=== PATIENT | male | born 1990 | race Caucasian/White ===

== ENCOUNTER 2019-03-04 07:43 | Emergency (ER) | payer BC ==
--- NOTE | 2019-03-04 08:16 | ED ---
Psych HPI - General Chief Complaint: Psychiatric Symptoms Stated Complaint: Would like to be committed Time Seen by Provider: 03/04/19 07:57 Source: patient, RN notes reviewed Mode of arrival: ambulatory Limitations: no limitations - History of Present Illness Initial Comments: 28-year-old male presents emergency Department chief complaint of suicidal i deation. Patient states that he's had on going thoughts for several years but states it's worse today. Patient has no exact plan. Patient states she has a large amount of stress factors that's bothering him. Patient uses see a psychiatrist no current medications he did drink alcohol last night states he does not abuse and no drug abuse. Denies any physical complaints including chest pain, shortness breath, headache, dizziness, nausea, vomiting, diarrhea constipation. - Related Data Home Medications Medication Instructions Recorded Confirmed Acetaminophen/Caffeine [Excedrin 1 tab PO Q8H 03/04/19 03/04/19 Tension Headache Cplt] Allergies Allergy/AdvReac Type Severity Reaction Status Date / Time Penicillins AdvReac Rapid Verified 03/04/19 07:57 Heart Rate Review of Systems ROS Statement: Those systems with pertinent positive or pertinent negative responses have been documented in the HPI. ROS Other: All systems not noted in ROS Statement are negative. Past Medical History Past Medical History: No Reported History History of Any Multi-Drug Resistant Organisms: None Reported Additional Past Surgical History / Comment(s): kidney removal, 2 undecended testicles repaired Past Psychological History: No Psychological Hx Reported Smoking Status: Never smoker Past Alcohol Use History: Rare Past Drug Use History: None Reported General Exam Limitations: no limitations General appearance: alert, in no apparent distress Head exam: Present: atraumatic, normocephalic, normal inspection Eye exam: Present: normal appearance, PERRL, EOMI. Absent: scleral icterus, conjunctival injection, periorbital swelling ENT exam: Present: normal exam, normal oropharynx, mucous membranes moist Neck exam: Present: normal inspection, full ROM. Absent: tenderness, meningismus, lymphadenopathy Respiratory exam: Present: normal lung sounds bilaterally. Absent: respiratory distress, wheezes, rales, rhonchi, stridor Cardiovascular Exam: Present: regular rate, normal rhythm, normal heart sounds. Absent: systolic murmur, diastolic murmur, rubs, gallop, clicks GI/Abdominal exam: Present: soft, normal bowel sounds. Absent: distended, tenderness, guarding, rebound, rigid Neurological exam: Present: alert, oriented X3, CN II-XII intact Psychiatric exam: Present: depressed Skin exam: Present: warm, dry, intact, normal color. Absent: rash Course Vital Signs 03/04/19 07:54 Temperature 98.7 F Pulse Rate 92 Respiratory 18 Rate Blood Pressure 150/93 O2 Sat by Pulse 96 Oximetry Medical Decision Making - Medical Decision Making 28-year-old male presented for depression, suicidal ideation. He was evaluated by EPS case discussed with psychiatrist who recommends inpatient treatment. Patient will be transferred to psychiatric facility secondary to insurance reasons - Lab Data Result diagrams: 03/04/19 10:50 03/04/19 10:50 Lab Results 03/04/19 03/04/19 03/04/19 Range/Units 08:00 08:00 10:50 WBC 7.7 (3.8-10.6) k/uL RBC 5.46 (4.30-5.90) m/uL Hgb 16.5 (13.0-17.5) gm/dL Hct 47.0 (39.0-53.0) % MCV 86.0 (80.0-100.0) fL MCH 30.1 (25.0-35.0) pg MCHC 35.0 (31.0-37.0) g/dL RDW 14.5 (11.5-15.5) % Plt Count 148 L (150-450) k/uL Neutrophils % 64 % Lymphocytes % 23 % Monocytes % 8 % Eosinophils % 1 % Basophils % 0 % Neutrophils # 5.0 (1.3-7.7) k/uL Lymphocytes # 1.8 (1.0-4.8) k/uL Monocytes # 0.6 (0-1.0) k/uL Eosinophils # 0.1 (0-0.7) k/uL Basophils # 0.0 (0-0.2) k/uL Sodium (137-145) mmol/L Potassium (3.5-5.1) mmol/L Chloride (98-107) mmol/L Carbon Dioxide (22-30) mmol/L Anion Gap mmol/L BUN (9-20) mg/dL Creatinine (0.66-1.25) mg/dL Est GFR (CKD-EPI)AfAm (>60 ml/min/1.73 sqM) Est GFR (CKD-EPI)NonAf (>60 ml/min/1.73 sqM) Glucose (74-99) mg/dL Calcium (8.4-10.2) mg/dL Total Bilirubin (0.2-1.3) mg/dL AST (17-59) U/L ALT (21-72) U/L Alkaline Phosphatase (38-126) U/L Total Protein (6.3-8.2) g/dL Albumin (3.5-5.0) g/dL Urine Color Light Yellow Urine Appearance Clear (Clear) Urine pH 7.0 (5.0-8.0) Ur Specific [place] 1.017 (1.001-1.035) Urine Protein 1+ H (Negative) Urine Glucose (UA) Negative (Negative) Urine Ketones 2+ H (Negative) Urine Blood Negative (Negative) Urine Nitrite Negative (Negative) Urine Bilirubin Negative (Negative) Urine Urobilinogen <2.0 (<2.0) mg/dL Ur Leukocyte Esterase Negative (Negative) Urine WBC 1 (0-5) /hpf Urine Mucus Rare H (None) /hpf Urine Opiates Screen Not Detected (NotDetected) Ur Oxycodone Screen Not Detected (NotDetected) Urine Methadone Screen Not Detected (NotDetected) Ur Propoxyphene Screen Not Detected (NotDetected) Ur Barbiturates Screen Not Detected (NotDetected) U Tricyclic Antidepress Not Detected (NotDetected) Ur Phencyclidine Scrn Not Detected (NotDetected) Ur Amphetamines Screen Not Detected (NotDetected) U Methamphetamines Scrn Not Detected (NotDetected) U Benzodiazepines Scrn Not Detected (NotDetected) Urine Cocaine Screen Not Detected (NotDetected) U Marijuana (THC) Screen Not Detected (NotDetected) 03/04/19 Range/Units 10:50 WBC (3.8-10.6) k/uL RBC (4.30-5.90) m/uL Hgb (13.0-17.5) gm/dL Hct (39.0-53.0) % MCV (80.0-100.0) fL MCH (25.0-35.0) pg MCHC (31.0-37.0) g/dL RDW (11.5-15.5) % Plt Count (150-450) k/uL Neutrophils % % Lymphocytes % % Monocytes % % Eosinophils % % Basophils % % Neutrophils # (1.3-7.7) k/uL Lymphocytes # (1.0-4.8) k/uL Monocytes # (0-1.0) k/uL Eosinophils # (0-0.7) k/uL Basophils # (0-0.2) k/uL Sodium 141 (137-145) mmol/L Potassium 3.6 (3.5-5.1) mmol/L Chloride 101 (98-107) mmol/L Carbon Dioxide 27 (22-30) mmol/L Anion Gap 13 mmol/L BUN 15 (9-20) mg/dL Creatinine 1.30 H (0.66-1.25) mg/dL Est GFR (CKD-EPI)AfAm 86 (>60 ml/min/1.73 sqM) Est GFR (CKD-EPI)NonAf 75 (>60 ml/min/1.73 sqM) Glucose 95 (74-99) mg/dL Calcium 9.8 (8.4-10.2) mg/dL Total Bilirubin 1.3 (0.2-1.3) mg/dL AST 39 (17-59) U/L ALT 46 (21-72) U/L Alkaline Phosphatase 70 (38-126) U/L Total Protein 8.0 (6.3-8.2) g/dL Albumin 4.9 (3.5-5.0) g/dL Urine Color Urine Appearance (Clear) Urine pH (5.0-8.0) Ur Specific [place] (1.001-1.035) Urine Protein (Negative) Urine Glucose (UA) (Negative) Urine Ketones (Negative) Urine Blood (Negative) Urine Nitrite (Negative) Urine Bilirubin (Negative) Urine Urobilinogen (<2.0) mg/dL Ur Leukocyte Esterase (Negative) Urine WBC (0-5) /hpf Urine Mucus (None) /hpf Urine Opiates Screen (NotDetected) Ur Oxycodone Screen (NotDetected) Urine Methadone Screen (NotDetected) Ur Propoxyphene Screen (NotDetected) Ur Barbiturates Screen (NotDetected) U Tricyclic Antidepress (NotDetected) Ur Phencyclidine Scrn (NotDetected) Ur Amphetamines Screen (NotDetected) U Methamphetamines Scrn (NotDetected) U Benzodiazepines Scrn (NotDetected) Urine Cocaine Screen (NotDetected) U Marijuana (THC) Screen (NotDetected) Disposition Clinical Impression: Depression, Suicidal ideation Disposition: TRANSFER TO PSYCH HOSP/UNIT Condition: Stable Referrals: None,Stated [Primary Care Provider] - 1-2 days
[2019-03-04 08:44] LABS: Amphetamine Screen,Urine Not Detected (NotDetected); Barbiturate Screen,Urine Not Detected (NotDetected); Benzodiazepines Screen,Urine Not Detected (NotDetected); Cocaine Screen,Urine Not Detected (NotDetected); Methadone Screen, Urine Not Detected (NotDetected); Opiate Screen,Urine Not Detected (NotDetected); Oxycodone Screen, Urine Not Detected (NotDetected); Phencyclidine Screen,Urine Not Detected (NotDetected); Tricyclic Antidepressant,Urine Not Detected (NotDetected); Urn Cannabinoid Scrn Not Detected (NotDetected)
[2019-03-04] MEDS ORDERED: ACETAMINOPHEN TAB 325 MG TAB PO STA (09:41)
[2019-03-04 10:50] LABS: Appearance,Urine Clear (Clear); Bilirubin,Urine Negative (Negative); Blood,Urine Negative (Negative); Color,Urine Light Yellow; Glucose,Urine (UA) Negative (Negative); Ketones,Urine 2+ (Negative); Leukocyte Esterase,Urine Negative (Negative); Mucus,Urine Rare /hpf; Nitrite,Urine Negative (Negative); Protein,Urine 1+ (Negative); Specific Gravity,Urine 1.017 (1.001-1.035); Urobilinogen,Urine <2.0 mg/dL (<2.0); WBC,Urine 1 /hpf (0-5)
[2019-03-04 11:09] LABS: Basophils % (A) 0 %; Eosinophils # (A) 0.1 k/uL (0-0.7); Eosinophils % (A) 1 %; HGB 16.5 gm/dL (13.0-17.5); Lymphocytes # (A) 1.8 k/uL (1.0-4.8); Lymphocytes % (A) 23 %; MCH 30.1 pg (25.0-35.0); Monocytes # (A) 0.6 k/uL (0-1.0); Monocytes % (A) 8 %; Neutrophils % (A) 64 %; Platelet Count 148 k/uL (150-450); RBC 5.46 m/uL (4.30-5.90); RDW 14.5 % (11.5-15.5); WBC 7.7 k/uL (3.8-10.6)
[2019-03-04 11:16] LABS: Albumin 4.9 g/dL (3.5-5.0); Calcium 9.8 mg/dL (8.4-10.2); Potassium 3.6 mmol/L (3.5-5.1); Total Bilirubin 1.3 mg/dL (0.2-1.3)
[2019-03-04] MEDS ORDERED: ACETAMINOPHEN TAB 500 MG TAB PO STA (19:19)
[2019-03-04 23:56] VITALS: BP 132/87; PULSE 70; RESP 18; TEMP 98.2
== END 2019-03-05 00:08 ==
LOC: EC 07:43
DX: F32.9 Major depressive disorder, single episode, unspecified (principal); R45.851 Suicidal ideations; Z79.899 Other long term (current) drug therapy; Z88.0 Allergy status to penicillin
CPT/HCPCS: 36415; 80053; 80306; 81001; 82075; 85025; 99285

== ENCOUNTER 2019-06-16 00:54 | Emergency (ER) | payer BC, OTHER ==
[2019-06-16 01:13] VITALS: BP 116/71; PULSE 88; RESP 18; TEMP 98.4
--- NOTE | 2019-06-16 01:45 | XR ---
EXAMINATION TYPE: XR finger RT DATE OF EXAM: 06/16/2019 COMPARISON: NONE HISTORY: Third digit infection TECHNIQUE: 3 views FINDINGS: There is some soft tissue swelling around the middle finger. There is posterior soft tissue swelling at the nailbed. I see no fracture nor dislocation. There is no focal bone destruction. IMPRESSION: Soft tissue swelling. No fracture. No sign of osteomyelitis.
--- NOTE | 2019-06-16 01:54 | ED ---
General Adult HPI - General Chief complaint: Extremity Injury, Upper Stated complaint: Finger Injury, I[facility] Time Seen by Provider: 06/16/19 01:08 Source: patient, RN notes reviewed Mode of arrival: ambulatory Limitations: no limitations - History of Present Illness Initial comments: 29-year-old male without any significant past medical history presents to the emergency department for a chief complaint of pain to the right third digit. Patient states 2 or 3 weeks ago he had an injury at work. States that he was seen by his primary care provider at that time. He had negative x-rays. Patient states that his nail is starting to, and he is concerned there is infection. Denies any pain with bending the finger. Patient states he was started on antibiotics yesterday. States he took a dose last night but forgot to take it this morning. States he took another dose just prior to arrival. Denies fevers or chills. Denies any streaking or spreading redness of the hand.Patient has no other complaints at this time including shortness of breath, chest pain, abdominal pain, nausea or vomiting, headache, or visual changes. - Related Data Home Medications Medication Instructions Recorded Confirmed Acetaminophen/Caffeine [Excedrin 1 tab PO Q8H 03/04/19 03/04/19 Tension Headache Cplt] Allergies Allergy/AdvReac Type Severity Reaction Status Date / Time Penicillins AdvReac Rapid Verified 06/16/19 01:13 Heart Rate Review of Systems ROS Statement: Those systems with pertinent positive or pertinent negative responses have been documented in the HPI. ROS Other: All systems not noted in ROS Statement are negative. Past Medical History Past Medical History: No Reported History History of Any Multi-Drug Resistant Organisms: None Reported Additional Past Surgical History / Comment(s): kidney removal, 2 undecended testicles repaired Past Psychological History: No Psychological Hx Reported Smoking Status: Never smoker Past Alcohol Use History: Occasional Past Drug Use History: None Reported General Exam Limitations: no limitations General appearance: alert, in no apparent distress Head exam: Present: atraumatic, normocephalic, normal inspection Eye exam: Present: normal appearance, PERRL, EOMI. Absent: scleral icterus, conjunctival injection, periorbital swelling ENT exam: Present: normal exam Neck exam: Present: normal inspection, full ROM. Absent: tenderness, meningismus, lymphadenopathy Respiratory exam: Present: normal lung sounds bilaterally. Absent: respiratory distress, wheezes, rales, rhonchi, stridor Cardiovascular Exam: Present: regular rate, normal rhythm, normal heart sounds. Absent: systolic murmur, diastolic murmur, rubs, gallop, clicks Extremities exam: Present: full ROM (Full range of motion of the right third digit including the DIP joint.), tenderness (Mild tenderness noted to the proximal nail fold. No tenderness to the finger pad.), normal capillary refill (Capillary refill less than 2 seconds in the right third digit.), other (Mild erythema with mild edema noted to the distal right third digit. This is only in the distal phalanx. However does not appear to be infection at this time. Appears to be more related to injury.) Course Vital Signs 06/16/19 01:08 Temperature 98.4 F Pulse Rate 88 Respiratory 18 Rate Blood Pressure 116/71 O2 Sat by Pulse 99 Oximetry Medical Decision Making - Medical Decision Making 29-year-old male presents to the emergency department for right finger injury 3 weeks ago. Patient injured this while at work. On examination there is some mild erythema with mild edema. There is tenderness to the proximal nail fold. No tenderness to the finger pad. Patient has full range of motion of the right third digit with full flexion of the third DIP joint. I do not see any obvious signs of infection. X-ray was taken which shows soft tissue swelling without fracture. No sign of osteomyelitis. Patient was given antibiotics yesterday and has only had 2 doses. Has not taken us appropriately as he missed a dose. Patient can continue his antibiotic and hit he has any worsening swelling or redness he is aware to return to the emergency department. Disposition Clinical Impression: Finger injury Disposition: HOME SELF-CARE Condition: Good Instructions (If sedation given, give patient instructions): Jammed Finger (ED), Nail Avulsion (ED) Additional Instructions: History of Motrin and Tylenol for pain. Please take antibiotics as directed in about 24-48 hours for this to work. If you have any worsening symptoms such as spreading or streaking redness up the finger, fever, or drainage then return to the emergency department. Is patient prescribed a controlled substance at d/c from ED?: No Referrals: None,Stated [Primary Care Provider] - 1-2 days Valeria Hewitt MD [REFERRING] - 1-2 days Time of Disposition: 01:54
== END 2019-06-16 02:09 | disposition home or self-care (01) ==
LOC: EC 00:54
DX: S69.91XA Unspecified injury of right wrist, hand and finger(s), initial encounter (principal); Z88.0 Allergy status to penicillin; X58.XXXA Exposure to other specified factors, initial encounter; Y92.69 Other specified industrial and construction area as the place of occurrence of the external cause; Y99.0 Civilian activity done for income or pay
CPT/HCPCS: 99283

== ENCOUNTER 2022-04-16 19:46 | Emergency (ER) | payer BC, OTHER ==
[2022-04-16 19:56] VITALS: RESP 16
[2022-04-16] MEDS ORDERED: diphenhydrAMINE 50 MG CAP PO STA (20:06)
[2022-04-16] MEDS ORDERED: SODIUM CHLORIDE 0.9% 1,000 ML IV STA (20:06)
[2022-04-16] MEDS ORDERED: DEXAMETHASONE SOD PHOSPHATE 10 MG/ML 1 ML VIAL IVP STA (20:07)
[2022-04-16 20:08] VITALS: BP 112/72; PULSE 87; TEMP 97.8
[2022-04-16 20:22] LABS: Basophils % (A) 0 %; Eosinophils # (A) 0.1 k/uL (0-0.7); Eosinophils % (A) 1 %; HCT 48.8 % (39.0-53.0); HGB 16.6 gm/dL (13.0-17.5); Lymphocytes # (A) 1.5 k/uL (1.0-4.8); Lymphocytes % (A) 15 %; MCH 30.2 pg (25.0-35.0); MCHC 34.1 g/dL (31.0-37.0); MCV 88.8 fL (80.0-100.0); Mean Platelet Volume 8.9; Monocytes # (A) 0.4 k/uL (0-1.0); Monocytes % (A) 4 %; Neutrophils # (A) 7.9 k/uL (1.3-7.7); Neutrophils % (A) 79 %; Platelet Count 151 k/uL (150-450); RDW 12.3 % (11.5-15.5)
[2022-04-16 20:30] LABS: Calcium 9.5 mg/dL (8.4-10.2); Potassium 4.3 mmol/L (3.5-5.1)
--- NOTE | 2022-04-16 21:23 | XR ---
EXAMINATION TYPE: XR chest 2V DATE OF EXAM: 04/16/2022 COMPARISON: 03/25/2015 HISTORY: Pain TECHNIQUE: FINDINGS: Heart and mediastinum are normal. Lungs are clear. Diaphragm is normal. Bony thorax appears normal. IMPRESSION: Normal chest. No change.
--- NOTE | 2022-04-16 21:50 | ED ---
Allergic Reaction HPI - General Chief complaint: Shortness of Breath Stated complaint: Hives,SOB Time Seen by Provider: 04/16/22 20:02 Source: patient Mode of arrival: EMS Limitations: no limitations - History of Present Illness Initial Comments: Patient complains of an ALLERGIC reaction. He did take Benadryl prior to arrival. He doesn't feel like he is, it better. He feels acute has tongue or lip swelling. He has no chest pain or belly pain or back pain. He has no nausea or vomiting. He is not sure what he might of been exposed to exactly, bu t he does have some ideas that it could be related to a work chemical. - Related Data Home Medications Medication Instructions Recorded Confirmed Acetaminophen/Caffeine [Excedrin 1 tab PO Q8H 03/04/19 03/04/19 Tension Headache Cplt] Previous Rx's Medication Instructions Recorded methylPREDNISolone Dose Pack 4 mg PO DIRECTED #21 tab 04/16/22 [Medrol Dose Pack] Allergies Allergy/AdvReac Type Severity Reaction Status Date / Time Penicillins AdvReac Rapid Verified 04/16/22 19:50 Heart Rate Review of Systems ROS Statement: Those systems with pertinent positive or pertinent negative responses have been documented in the HPI. ROS Other: All systems not noted in ROS Statement are negative. Past Medical History Past Medical History: No Reported History History of Any Multi-Drug Resistant Organisms: None Reported Additional Past Surgical History / Comment(s): kidney removal, 2 undecended testicles repaired Past Psychological History: No Psychological Hx Reported Smoking Status: Former smoker Past Alcohol Use History: Occasional Past Drug Use History: None Reported General Exam Limitations: no limitations General appearance: alert, in no apparent distress Head exam: Present: atraumatic, normocephalic, normal inspection Eye exam: Present: normal appearance, PERRL, EOMI. Absent: scleral icterus, conjunctival injection, periorbital swelling ENT exam: Present: normal exam, mucous membranes moist Neck exam: Present: normal inspection. Absent: tenderness, meningismus, lymphadenopathy Respiratory exam: Present: normal lung sounds bilaterally. Absent: respiratory distress, wheezes, rales, rhonchi, stridor Cardiovascular Exam: Present: regular rate, normal rhythm, normal heart sounds. Absent: systolic murmur, diastolic murmur, rubs, gallop, clicks GI/Abdominal exam: Present: soft, normal bowel sounds. Absent: distended, tenderness, guarding, rebound, rigid Extremities exam: Present: normal inspection, full ROM, normal capillary refill. Absent: tenderness, pedal edema, joint swelling, calf tenderness Back exam: Present: normal inspection Neurological exam: Present: alert, oriented X3, CN II-XII intact Psychiatric exam: Present: normal affect, normal mood Skin exam: Present: warm, dry, intact, normal color. Absent: rash Course Vital Signs 04/16/22 04/16/22 19:51 20:05 Temperature 99.0 F 97.8 F Pulse Rate 106 H 87 Respiratory 16 16 Rate Blood Pressure 75/48 112/72 O2 Sat by Pulse 100 100 Oximetry Medical Decision Making - Medical Decision Making Patient complains of an ALLERGIC reaction. He is given IV Benadryl and steroids. Patient's symptoms have resolved. He is feeling better. There is no emergency. He is stable for discharge. - Lab Data Result diagrams: 04/16/22 20:18 04/16/22 20:16 Lab Results 04/16/22 04/16/22 Range/Units 20:16 20:18 WBC 10.0 (3.8-10.6) k/uL RBC 5.50 (4.30-5.90) m/uL Hgb 16.6 (13.0-17.5) gm/dL Hct 48.8 (39.0-53.0) % MCV 88.8 (80.0-100.0) fL MCH 30.2 (25.0-35.0) pg MCHC 34.1 (31.0-37.0) g/dL RDW 12.3 (11.5-15.5) % Plt Count 151 (150-450) k/uL MPV 8.9 Neutrophils % 79 % Lymphocytes % 15 % Monocytes % 4 % Eosinophils % 1 % Basophils % 0 % Neutrophils # 7.9 H (1.3-7.7) k/uL Lymphocytes # 1.5 (1.0-4.8) k/uL Monocytes # 0.4 (0-1.0) k/uL Eosinophils # 0.1 (0-0.7) k/uL Basophils # 0.0 (0-0.2) k/uL Sodium 136 L (137-145) mmol/L Potassium 4.3 (3.5-5.1) mmol/L Chloride 99 (98-107) mmol/L Carbon Dioxide 25 (22-30) mmol/L Anion Gap 12 mmol/L BUN 17 (9-20) mg/dL Creatinine 1.41 H (0.66-1.25) mg/dL Est GFR (CKD-EPI)AfAm 76 (>60 ml/min/1.73 sqM) Est GFR (CKD-EPI)NonAf 66 (>60 ml/min/1.73 sqM) Glucose 102 H (74-99) mg/dL Calcium 9.5 (8.4-10.2) mg/dL 04/16/22 21:49 Twelve-lead EKG shows ventricular rate 85 bpm, normal IA interval and QRS complexes, no ST elevation or depression, interpreted by me as normal sinus rhythm. Disposition Clinical Impression: Allergic reaction Disposition: HOME SELF-CARE Condition: Good Instructions (If sedation given, give patient instructions): Allergies (ED) Prescriptions: methylPREDNISolone Dose Pack [Medrol Dose Pack] 4 mg PO DIRECTED #21 tab Is patient prescribed a controlled substance at d/c from ED?: No Referrals: Nonstaff,Physician [Primary Care Provider] - 1-2 days
== END 2022-04-16 22:04 | disposition home or self-care (01) ==
LOC: EC 19:46
DX: T78.40XA Allergy, unspecified, initial encounter (principal); Z87.891 Personal history of nicotine dependence; Z88.0 Allergy status to penicillin
CPT/HCPCS: 36415; 80048; 85025; 71046; 99285; 96374; 96361; J1100

== ENCOUNTER → 2025-01-18 | Outpatient (CLI) | payer OTHER ==
--- NOTE | 2025-01-18 09:55 | XR ---
EXAMINATION TYPE: XR shoulder complete 3 views RT DATE OF EXAM: 01/18/2025 9:49 AM COMPARISON: None CLINICAL INDICATION: Male, 34 years old with history of [id number] STRAIN UNSP MUSC/FASC/TEND AT SHLDR/ UP AR; PHH, pain FINDINGS: AC joint appears congruent and intact. Subacromial space is preserved. No acute fracture, subluxation , dislocation. IMPRESSION: No acute osseous abnormalities seen. [facility], Workstation: [facility], 01/18/2025 9:52 AM
== END | disposition home or self-care (01) ==
LOC: RADXRMAIN 09:33
PROVIDERS: ATTEND Emergency Medicine
DX: S46.911A Strain of unspecified muscle, fascia and tendon at shoulder and upper arm level, right arm, initial encounter (principal)